=== PATIENT | male | born 1970 ===

== ENCOUNTER 2018-05-03 17:28 | Emergency (ER) | payer BC ==
[2018-05-03 18:08] VITALS: BP 133/84
--- NOTE | 2018-05-03 18:20 | UC ---
Skin Complaint HPI - History of Current Complaint Chief Complaint: [facility] Time Seen by Provider: 05/03/18 18:12 Stated Complaint: SKIN COMPLAINT Hx Obtained From: Patient Onset/Duration: Sudden Onset Skin Exposure Onset/Duration: Hours Ago Timing: Constant Onset Severity: Moderate Current Severity: Moderate Pain Intensity: 0 Location: Other - left leg redness, rash Aggravating Factor(s): Nothing Alleviating Factor(s): Nothing Associated Signs & Symptoms: Positive: Fever, Chills - Allergy/Home Medications Allergies/Adverse Reactions: Allergies Allergy/AdvReac Type Severity Reaction Status Date / Time No Known Allergies Allergy Verified 05/03/18 18:02 Review of Systems Constitutional: Negative Skin: Negative Eyes: Negative ENT: Negative Respiratory: Negative Cardiovascular: Negative Gastrointestinal: Negative Genitourinary: Negative Motor: Negative Neurovascular: Negative Musculoskeletal: Myalgia Neurological: Negative Psychological: Negative Is Patient Immunocompromised?: No All Other Systems Reviewed And Are Negative: Yes PMH/Surg Hx/FS Hx/Imm Hx Previously Healthy: Yes - Surgical History Surgical History: None - Social History Alcohol Use: Rare Substance Use Type: None Smoking Status (MU): Never Smoked Tobacco Physical Exam Triage Information Reviewed: Yes Vital Signs: Initial Vital Signs Temp 38.8 C 05/03/18 18:03 Pulse 92 05/03/18 18:03 Resp 24 05/03/18 18:03 BP 133/84 05/03/18 18:03 Pulse Ox 97 05/03/18 18:03 Vital Signs Reviewed: Yes Eye Exam: Normal Eyes: Positive: Conjunctiva Clear ENT Exam: Normal ENT: Positive: Normal ENT inspection Dental Exam: Normal Neck exam: Normal Neck: Positive: Supple Respiratory: Positive: Chest non-tender, Lungs clear Cardiovascular Exam: Normal Cardiovascular: Positive: RRR Abdominal Exam: Normal Skin Exam: Other - circular reddened indurated area of the left posterior calf, no drainage or vesicles , central area of increased redness, no bullseye seen Course/Dx - Diagnoses Provider Diagnoses: lyme disease vs cellulitis Discharge - Sign-Out/Discharge Documenting (check all that apply): Patient Departure - Discharge Plan Condition: Good Disposition: HOME Prescriptions: Amoxicillin PO (*) [Amoxicillin 500 MG CAP*] 500 mg PO TID 14 Days #42 cap Patient Education Materials: Lyme Disease (ED), Cellulitis (ED) Referrals: No Primary Care Phys,NOPCP [Primary Care Provider] - - Billing Disposition and Condition Condition: GOOD Disposition: Home
[2018-05-03] MEDS ORDERED: Ibuprofen TAB* 600 MG PO ONE (18:29)
[2018-05-04 10:50] LABS: Hematocrit 45 % (42-52); Mean Corpuscular HGB Conc 34 g/dl (31-36); Mean Corpuscular Hemoglobin 29 pg (27-31); Mean Corpuscular Volume 85 fL (80-94); Mean Platelet Volume 8.2 um3 (7.4-10.4); Platelet Count 209 10^3/ul (150-450); Red Blood Count 5.23 10^6/ul (4.00-5.40); Red Cell Distribution Width 13 % (10.5-15); White Blood Count 7.1 10^3/ul (3.5-10.8)
[2018-05-04 11:22] LABS: ABS Basophils 0 10^3/ul (0-0.2); ABS Eosinophils 0.1 10^3/ul (0-0.6); ABS Lymphocytes 1.3 10^3/ul (1.0-4.8); ABS Monocytes 1.3 10^3/ul (0-0.8); ABS Neutrophils 4.3 10^3/ul (1.5-7.7)
[2018-05-04 11:25] LABS: ABS Basophils 0.1 10^3/ul (0-0.2); ABS Neutrophils 4.5 10^3/ul (1.5-7.7); Monocytes % 13 % (0-7)
[2018-05-04 11:34] LABS: EGFR Non-African American 77.1 (>60)
== END 2018-05-03 19:11 | disposition home or self-care (01) ==
LOC: UCCORT 17:28
DX: R21 Rash and other nonspecific skin eruption (principal)
CPT/HCPCS: 36415; 80053; 85025; 85060; 86617; 86618; 99202; A9270-GY; G0463